=== PATIENT | male | born 1980 | race Caucasian/White ===

== ENCOUNTER 2023-04-13 13:15 | Emergency (ER) | payer MEDICAID, SELFPAY ==
[2023-04-13 13:40] VITALS: BP 141/96; PULSE 78; RESP 19; TEMP 37; O2SAT 99; BMI 40.1
[2023-04-13 13:59] VITALS: BP 141/96; PULSE 78; RESP 19; TEMP 37; O2SAT 99
--- NOTE | 2023-04-13 14:08 | EXP.UTC ---
Discharge Plan Disposition Patient Disposition: Home, Self-Care Condition: Good Prescriptions Prescriptions: New ondansetron 4 mg tablet,disintegrating 4 mg PO Q8H PRN (Reason: nausea and vomiting) Qty: 10 0RF dicyclomine 10 mg capsule 10 mg PO TID PRN (Reason: abdominal pain/cramping) Qty: 12 0RF No Action gabapentin 600 mg tablet 600 mg PO DAILY citalopram [Celexa] 40 mg Tablet 40 mg PO DAILY tizanidine 4 mg tablet 4 mg PO DAILY amlodipine 5 mg tablet 5 mg PO DAILY lisinopril 40 mg tablet 40 mg PO DAILY aripiprazole 10 mg tablet 10 mg PO DAILY bupropion HCl 150 mg tablet extended release 24 hr 150 mg PO DAILY Referrals Follow up/Referrals: Fady Prasad [Primary Care Provider] - See instructions Activity Restrictions/Add. Instructions Additional Instructions/Restrictions: Drink extra fluids with and between meals. If you have difficulty drinking, try very small amounts of water or suck on ice chips. ? Avoid fruit juices, as these do not replace minerals and can actually increase diarrhea. ? Children and adults can use sports drinks to replenish electrolytes. Younger children and infants should use products formulated for children, like oral rehydration solutions. ? Eat food in small amounts and let your stomach recover. ? Get lots of rest. You may feel tired or weak. ? No greasy or fried foods for the next 24-48 hours BRAT diet Bananas Rice Apples and [place] ? Make sure to drink plenty of liquids ? Return if needed ? Straight to ER if any life threatening symptoms ? Zofran as prescribed ? You was given an outpatient order for diarrhea panel, please collect specimen and bring back to outpatient lab then call back to the [facility] or follow up with family doctor for results ? Follow up with family doctor in the next 48-72 hours if no improvement or any worsening of symptoms Clinical Impressions Clinical Impression: Viral syndrome Stand Alone Forms Stand Alone Forms: Work/School Release Instructions Patient Instructions: Diarrhea, Nausea and Vomiting-Adult Discharge ED Provider: Amina [place] [facility] [place] Stated complaint: stomach pain, diarrhea Mode of Arrival: Ambulatory Source of Information: Patient Limitations: No Limitations Time Seen by Provider: 04/13/23 14:08 Description of Symptoms (Recalled from Triage Doc. by RN): PATIENT C/O VOMITING AND STOMACH CRAMPS SINCE YESTERDAY HEENT Symptoms (Recalled from RN notes): No Resp Symptoms (Recalled from RN notes): No Skin Symptoms (Recalled from RN notes): No MS Symptoms (Recalled from RN notes): No Functional Status (Recalled from RN notes): WNL History of Present Illness Provider Complaint: Patient states that he thinks he has a stomach bug States that he has been having N/V/D and cramping since last night States that this morning he was still having vomiting so he came in to get something to help States that he has still had some diarrhea today also Related Data Home Medications Medication Instructions Recorded Confirmed amlodipine 5 mg tablet 5 mg PO DAILY Hypertension 04/13/23 04/13/23 aripiprazole 10 mg tablet 10 mg PO DAILY . 04/13/23 04/13/23 bupropion HCl 150 mg 24 hr tablet, 150 mg PO DAILY ANGER 04/13/23 04/13/23 extended release citalopram 40 mg tablet (Celexa) 40 mg PO DAILY ANGER 04/13/23 04/13/23 gabapentin 600 mg tablet 600 mg PO DAILY NEUROPATHY 04/13/23 04/13/23 lisinopril 40 mg tablet 40 mg PO DAILY Hypertension 04/13/23 04/13/23 tizanidine 4 mg tablet 4 mg PO DAILY Pain 04/13/23 04/13/23 Previous Rx's Medication Instructions Recorded dicyclomine 10 mg capsule 10 mg PO TID PRN abdominal 04/13/23 pain/cramping #12 caps ondansetron 4 mg disintegrating 4 mg PO Q8H PRN nausea and 04/13/23 tablet vomiting #10 tabs Allergies Allergy/AdvReac Type Severity Reac
== END 2023-04-13 14:28 | disposition home or self-care (01) ==
PROVIDERS: Emergency Provider Nurse Practitioner; PCP Internal Medicine
DX: R11.2 Nausea with vomiting, unspecified (principal); R19.7 Diarrhea, unspecified; M62.838 Other muscle spasm; I10 Essential (primary) hypertension; F41.9 Anxiety disorder, unspecified; F32.A Depression, unspecified; B34.9 Viral infection, unspecified
CPT/HCPCS: 99204; 99212; G0463